=== PATIENT | female | born 1980 | race African-American/Black ===

== ENCOUNTER 2017-08-02 09:31 | Emergency (ER) | payer MEDICAID ==
[~2017-08-02] VITALS: Ht 149.9 cm; Wt 113.0 kg
[2017-08-02 09:44] VITALS: BP 138/88
[2017-08-02 11:05] LABS: HCG SCREEN NEGATIVE
[2017-08-02] MEDS ORDERED: IBUPROFEN 600MG TABLET PO ONE (11:30)
== END 2017-08-02 12:12 | disposition left against medical advice (07) ==
LOC: ER 10:02
DX: L03.115 Cellulitis of right lower limb (principal); R20.2 Paresthesia of skin; R20.0 Anesthesia of skin; J45.909 Unspecified asthma, uncomplicated; F12.10 Cannabis abuse, uncomplicated; Z88.6 Allergy status to analgesic agent; Z91.040 Latex allergy status; Z88.8 Allergy status to other drugs, medicaments and biological substances
CPT/HCPCS: 73630; 84703; 99285